=== PATIENT | female | born 2000 | race Caucasian/White ===

== ENCOUNTER 2021-04-26 21:25 | Emergency (ER) | payer OTHER, BC ==
[2021-04-26 22:05] VITALS: BP 97/64; PULSE 86; TEMP 99.2
[2021-04-26] MEDS ORDERED: IBUPROFEN 600 MG TABLET (FP) PO ONE ×2 (22:37)
== END 2021-04-26 22:44 | disposition home or self-care (01) ==
LOC: FER 21:25
DX: S16.1XXA Strain of muscle, fascia and tendon at neck level, initial encounter (principal); S40.022A Contusion of left upper arm, initial encounter; V49.40XA Driver injured in collision with unspecified motor vehicles in traffic accident, initial encounter
CPT/HCPCS: 99283-25